=== PATIENT | female | born 2000 | race Caucasian/White ===

== ENCOUNTER 2021-12-18 11:04 | Inpatient (IN) | payer OTHER ==
[~2021-12-18] VITALS: Ht 154.9 cm; Wt 118.8 kg
[~2021-12-18 11:04] MED LIST: LAMICTAL100 MG PO; MINIPRES1 MG PO
[2021-12-18] MEDS ORDERED: ASPIRIN EC81 M1 PO (11:56)
[2021-12-18] MEDS ORDERED: PRENATAL VITAM1 EAC6 PO (11:56)
[2021-12-18] MEDS ORDERED: PROGESTERONE200 MG VG (11:58)
[2021-12-18 12:11] LABS: BILIRUBIN NEGATIVE (NEGATIVE); BLOOD NEGATIVE Ery/uL (NEGATIVE); CLARITY CLEAR (CLEAR); COLOR YELLOW (YELLOW); GLUCOSE (U) NORMAL (NORMAL); LEUKOCYTES 2+ Leu/uL (NEGATIVE); NITRITE NEGATIVE (NEGATIVE); PROTEIN NEGATIVE (NEGATIVE); UROBILINOGEN 0.2 mg/dL (0.2-1.0); pH 7.5 (5.0-9.0)
[2021-12-18 12:13] LABS: AMPHETAMINES NEGATIVE (NEGATIVE); BARBITURATES NEGATIVE (NEGATIVE); ECSTASY (MDMA) NEGATIVE (NEGATIVE); MARIJUANA (THC) NEGATIVE (NEGATIVE); METHADONE NEGATIVE (NEGATIVE); OPIATES NEGATIVE (NEGATIVE); OXYCODONE NEGATIVE (NEGATIVE)
[2021-12-18 12:14] LABS: HCT 35.2 % (37.0-47.0); HGB 11.4 g/dl (12.5-16.0); MCHC 32.4 g/dL (32.0-36.0); MCV 83.2 fL (78.0-100.0); MPV 13.6 fL (6.0-9.5); RBC 4.23 M/uL (4.20-5.40); RDW 14.4 % (11.5-14.0); WBC 8.6 K/uL (4.0-10.5)
[2021-12-18 12:18] LABS: BACTERIA 1+
[2021-12-18 12:20] LABS: URIC ACID 5.8 mg/dL (2.6-6.2)
[2021-12-18 12:22] LABS: BILIRUBIN - TOTAL 0.2 mg/dL (0.2-1.0); BUN/CREAT RATIO (CALC) 10.3 RATIO; CREATININE 0.68 mg/dL (0.51-0.95); GLOBULIN (CALCULATION) 4.2 g/dL; POTASSIUM 4.2 mmol/L (3.5-5.1); TOTAL PROTEIN 6.2 g/dL (6.4-8.2)
[2021-12-18 12:25] LABS: PROTEIN:CREATININE 0.23 RATIO; URINE CREATININE 131.4 mg/dL (29.00-226.00); URINE TOTAL PROTEIN-RANDOM 31.4 mg/dL (<11.9)
--- NOTE | 2021-12-20 15:52 | NUR ---
RECEIVED REFERRAL THAT MOTHER HAS HX OF THC AND METH USE. SHE REPORTS TO BE SOBER SINCE JULY. MOTHER DOES NOT HAVE CUSTODY OF HER SON, KYRIE ENGLISH . THE CHILD IS IN THE CUSTODY OF HIS PATERNAL GRANDMOTHER. MET WITH MOTHER, ARIANNE TRIVEDI AND FOB, RAYA BRITO. MOTHER AGREED FOR FOB TO REMAIN IN THE ROOM DURING INTERVIEW. MOTHER ADVISED THAT SHE DID USE DRUGS, BUT QUIT ON HER OWN. SHE IS CURRENTLY IN PARENTING CLASSES WITH [facility]. PER THE FOB HE STATED THAT THE MOTHER HAD BEEN CLEAN AND HE AND NOT OBSERVED USING ANY DRUGS. THE MOTHER WAS NEGATIVE FOR DRUGS ON ADMISSION. MOTHER STATED THAT SHE IS TRYING TO GET VISITATION WITH HER SON, THAT IS WHY SHE IS ATTENDING PARENTING CLASSES. SHE AND THE FOB ARE RESIDING WITH HIS GRANDMOTHER AND FATHER IN AN APT. THE MOTHER IS EMPLOYED AT [employer] THE FATHER BEING EMPLOYED AT A [employer] WORKING CLAIMS CUSTOMER SERVICE REPRESENTATIVE AT [facility]. PATIENT WAS REFERRED TO [facility]. A REFERRAL LIST OF RESOURCES WAS GIVEN TO THE PATIENT. THE NURSE, ADRIANNA, DID NOT HAVE ANY CONCERNS RELATED TO SET UP MOLD TECHNICIAN. A REFERRAL WAS MADE TO [facility], BUT WAS NOT ACCEPTED. WEB REFERRAL ID [id number].
[2021-12-21 07:11] LABS: HCT 30.5 % (37.0-47.0); HGB 9.4 g/dl (12.5-16.0); MCH 26.4 pg (25.0-31.0); MCHC 30.8 g/dL (32.0-36.0); MCV 85.7 fL (78.0-100.0); MPV 12.9 fL (6.0-9.5); RBC 3.56 M/uL (4.20-5.40); RDW 15.3 % (11.5-14.0); WBC 7.1 K/uL (4.0-10.5)
== END 2021-12-21 11:16 | disposition home or self-care (01) | DRG 806 ==
LOC: FOD 11:04 → FOB 11:04 → FOD 12-19 12:08 → FOB 12-19 12:14
PROVIDERS: Obstetrics & Gynecology; ADMIT Obstetrics & Gynecology
PROC: 10E0XZZ Delivery of Products of Conception, External Approach (ICD-10-PCS; principal; 2021-12-19)
PROC: 0UQMXZZ Repair Vulva, External Approach (ICD-10-PCS; 2021-12-19)
DX: O13.4 Gestational [pregnancy-induced] hypertension without significant proteinuria, complicating childbirth (principal); D62 Acute posthemorrhagic anemia; Z37.0 Single live birth; O99.12 Other diseases of the blood and blood-forming organs and certain disorders involving the immune mechanism complicating childbirth; O36.63X0 Maternal care for excessive fetal growth, third trimester, not applicable or unspecified; Z3A.37 37 weeks gestation of pregnancy; Z20.822 Contact with and (suspected) exposure to COVID-19; O99.02 Anemia complicating childbirth; O71.82 Other specified trauma to perineum and vulva; D69.6 Thrombocytopenia, unspecified; O99.344 Other mental disorders complicating childbirth; F41.9 Anxiety disorder, unspecified; F32.A Depression, unspecified; F43.10 Post-traumatic stress disorder, unspecified; O99.334 Smoking (tobacco) complicating childbirth; F17.210 Nicotine dependence, cigarettes, uncomplicated; O99.214 Obesity complicating childbirth; O99.52 Diseases of the respiratory system complicating childbirth; J45.909 Unspecified asthma, uncomplicated; Z79.82 Long term (current) use of aspirin; Z79.899 Other long term (current) drug therapy
CPT/HCPCS: 36415; 80053; 80305; 81001; 82570; 83615; 84156; 84550; 86850; 86900; 86901; J0360; J0595; J0610; J2001; J2300; J3475; J3490; J7120; U0002